=== PATIENT | male | born 1960 | race Caucasian/White ===

== ENCOUNTER 2019-08-07 14:34 | Outpatient (CLI) | payer BC ==
[2019-08-07 16:16] VITALS: BP 124/72
--- NOTE | 2019-08-07 16:16 | SLEEP CARE CONSULTATION ---
Information from patient questionnaire entered by Jennifer Gordon. I have reviewed and concur with the information entered by Jennifer Gordon. This document represents the service I personally performed and the decisions made by me, Ryann Worrell MD, [facility]. History of Present Illness Reason for Visit: New patient, Previously diagnosed sleep apnea, sleep apnea on CPAP therapy Chief Complaint: reports: Other (poor CPAP mask fit) Duration of Symptoms: 1 year Usual bedtime: [id number] Time it takes to fall asleep: 5-10 minutes Snores at night: Yes (without CPAP) Observed to quit breathing while asleep: Yes Sleeps alone due to snoring: No Number of times waking at night: 2-4 Reasons for waking at night: reports: Other (unknown- wake, look at clock, go back to sleep) Toss, Turn, or Twitch while sleeping: No Recalls having dreams: Yes Usually gets out of bed at: 0700 Feels refreshed in the morning: Yes Morning headache: No Sleepy or fatigued during the day: Yes Ever fallen asleep while driving: Yes (microsleep greater than 15 years ago) Takes day naps: No Dreams during day naps: Yes (I think) Prior sleep studies: Yes Year and Where: 2008 [facility] for Sleep Additional HPI information: I had the pleasure of seeing Mr. Robles today regarding obstructive sleep apnea-hypopnea. As you know, he is a 58 year old gentleman who was diagnosed with the sleep-disordered breathing in [place], [place], in 2008. The AHI was 27. He was prescribed a CPAP device set at 6 15 cmH2O. He is currently on his second CPAP. He uses it every night and all night. The compliance data show usage in 180 out of the past 180 nights, averaging 7.4 hours a night. The residual AHI is 3.9 and average air leak is 4 hours a night. He wears a full face mask. He has no durable medical supplier. He finds the treatment beneficial. CPAP Compliance Data - Data Reviewed with Patient Average duration of nightly device use: 7h 26m Compliance rate %: 97.8 Current pressure setting (cmH2O): 6-15 Humidity settin Subjective Initial Craig Sleepiness Scale score: 1 Past Medical History Past Medical History: reports: Arrythmia (successfully eliminated by cardiac ablations) Social History The patient's occupation is retired. Patient is and lives in [place]. Have you smoked in the past 12 months: No Alcohol use: No Caffeine use: Yes Caffeine amount and frequency: 12oz Diet Coke after lunch Family History Family history of sleep disordered breathing: Yes Family Hx Sleep Apnea: Father: Sleep apnea - Treated Allergies and Home Medications Drug allergies reviewed: Yes Home medication list reviewed: Yes Review of Systems Weight gain over past 5 years: 26 Cardiovascular: reports: palpitations (used to) Respiratory: denies: shortness of breath, wheeze, sputum production, chronic cough, other Gastrointestinal: denies: heartburn, difficulty swallowing, nausea, vomitting, diarrhea, abdominal pain, other Urinary: denies: incontinence, frequency, urgency, impotence, other Neurological: denies: headaches, seizure, head trauma, disorientation, speech dysfunction, gait or balance problems, fainting or unconsciousness, other Psychiatric: denies: Attention Deficit Hyperactivity, anxiety, depression, mood disorder, claustrophobia, other Ear/Nose/Throat: reports: wisdom teeth removed. denies: nasal congestion, sinus problems, nose bleeds, dry mouth/throat, hoarseness, injury to nose, tonsillectomy, other Endocrine: denies: thyroid disease, history of goiter, sluggishness, too hot or cold, excessive thirst, increased appetite, increased urination, unexplained weakness, other Musculoskeletal: denies: joint pain, neck pain, back pain, joint swelling, muscle pain or cramping, mobility problems, other Immunologic: reports: sneezing (runny nose) Physical Exam Vital signs obtained and entered by: Dr. Worrell Blood Pressure: 124/72 Cuff size: regular Heart Rate: 72 O2 Saturation: 99 Height: 6 ft 2 in Weight: 188 lb Body Mass Index: 24.1 BMI Classification: Healthy weight Neck circumference: 15 Mood/affect: normal HEENT: No craniofacial malformation Nostrils: patent to airflow Turbinates: normal Septum: midline Mouth and throat: narrow oropharynx Soft palate: long Hard palate: normal Uvula: normal Uvula visualization: 50% Mallampati Class II Tongue: normal in size Tonsils: small Chin and jaw: normal size and position Neck: normal w/o lymphadenopathy or thyromegaly Heart: regular rate and rhythm Lungs: clear bilaterally Abdomen: soft, non-tender Extremities: no edema or clubbing Neurologic: intact, no focal deficits Impression and Plan IMPRESSION: 1. Obstructive Sleep Apnea-Hypopnea Syndrome, moderate, as previously diagnosed 10 years ago. The patient has good CPAP compliance. The current pressure setting appears effective and comfortable. The mask, however, does not fit well. The full face mask appears to be a disposable mask given to him by the hospital where he was admitted to for his heart condition. Based on his old sleep study, I will order him a new machine along with supplies. I will set the new machine at the same setting of 6 15 cmH2O. Plan: 1. Prescription made for an autoCPAP, heated humidifier, and related supplies. 2. Try newer full face masks. 3. Return for follow up after one month on the new machine. I spent 100% of this 20 minute visit face to face with the patient with greater than 50% of this was spent time counseling the patient and coordination of care.
== END 2019-08-07 14:35 | disposition home or self-care (01) ==
LOC: SC 14:34
PROVIDERS: ATTEND Internal Medicine Pulmonary Disease
DX: G47.33 Obstructive sleep apnea (adult) (pediatric) (principal)
CPT/HCPCS: 99203; 99212

== ENCOUNTER 2019-11-21 13:39 | Outpatient (CLI) | payer BC ==
[2019-11-21 15:04] VITALS: BP 98/70
--- NOTE | 2019-11-21 15:04 | SLEEP CARE CONSULTATION ---
Information from patient questionnaire entered by Taryn Crisostomo. I have reviewed and concur with the information entered by Taryn Crisostomo. This document represents the service I personally performed and the decisions made by me, Doris Garcia, RN, MSN, [employer]. History of Present Illness Previous diagnosis: Moderate, Obstructive Sleep Apnea-Hypopnea Syndrome AHI: 27 Equipment type: CPAP Equipment obtained from: [employer] Mask style: Full face (Crystal View - large cushion) Mask brand: Respironics Backup mask available: Yes (old mask) Last cushion change: a few days ago CPAP Compliance Data - Data Reviewed with Patient Average duration of nightly device use: 8.2 Compliance rate %: 96.7 Current pressure setting (cmH2O): 6-15 Humidity settin Heated hose settin Average residual AHI: 4.9 Average large leak: 1 hr 20 min 50 sec Subjective Patient concerns: reports: aerophagia, mask leak noise (especially when sleeps on side ), other (irritation end of nose from mask - ). denies: mask discomfort, air blowing in eyes, condensation in mask/hose, nasal congestion, dry mouth, nose, throat, epistaxis Observed to snore while using device: No Current pressure setting perceived as: comfortable On therapy, patient: reports: sleeping better, more rested overall. denies: drowsiness while driving Initial Lancaster Sleepiness Scale score: 1 Current Lancaster Sleepiness Scale score: 2 Allergies and Home Medications Known drug allergies: No Home medication list reviewed: Yes (no change from initial) Review of Systems Review of systems same as previous: Yes Physical Exam Blood Pressure: 98/70 Cuff size: long Heart Rate: 69 O2 Saturation: 98 Height: 6 ft 2 in Weight: 197 lb Body Mass Index: 25.2 BMI Classification: Overweight Impression and Plan 1. Obstructive Sleep Apnea-Hypopnea Syndrome, moderate, with good treatment compliance and good apnea control. On CPAP therapy, the patient has better sleep quality and is more rested overall. For mask irritation and leaks, could be from too large of mask. I fitted him and he is a medium by my measurements so I advised him to try his medium cushion. I showed him some other styles of masks that he could try if end of nose continues to be irritated. Mask leaks can be reduced by washing mask daily and changing mask cushions more frequently to improve mask seal and comfort. He can incorporate by washing off when brushes teeth or using a CPAP wipe. Additionally, mask leaks predominately from when patient sleeps on their side can be reduced by using a CPAP pillow. A CPAP pillow sample was shown. This and other styes can be bought online for about $60 . Cleaning reference sheet given. I showed him how his mask leaks were increasing his AHI, though averaging 4.9 within the goal of less than 5 AHI. Patient's apnea severity and rationale for treatment to reduce apnea, improve sleep quality and reduce cardiovascular and cerebrovascular events was reviewed. I also reviewed the benefit of consistent device use of CPAP for arrhythmia. ( ablation in 2019). Since his apnea is more severe supine, if unable to use CPAP he is advised to avoid supine sleep with pillow positioning. * Continue CPAP pressure at 6-15 cmH2O * Try medium cushion * Implement cleaning methods discusse. * Notify me if snoring with mask or feeling that the pressure is too much or too little * Attempt to lose weight * Call this office if any problems using CPAP * Return for follow up in 1 year , or sooner if concerns arise Time Spent with Patient (minutes): 30 I spent 100% of this visit face to face with the patient with greater than 50% of this was spent time counseling the patient and coordination of care.
== END 2019-11-21 13:40 | disposition home or self-care (01) ==
LOC: SC 13:39
PROVIDERS: ATTEND Nurse Practitioner Family
DX: G47.33 Obstructive sleep apnea (adult) (pediatric) (principal)
CPT/HCPCS: 99212; 99214

== ENCOUNTER 2020-12-04 15:05 | Outpatient (CLI) | payer BC ==
--- NOTE | 2020-12-04 14:53 | SLEEP CARE CONSULTATION ---
Information from patient questionnaire entered by Haresh Goodman. I have reviewed and concur with the information entered by Haresh Goodman. This document represents the service I personally performed and the decisions made by , Shavon Salcido ARNP. History of Present Illness Service Date and Time: 12/04/2020 1420 Previous diagnosis: Moderate, Obstructive Sleep Apnea-Hypopnea Syndrome AHI: 27 Reason for follow up: annual (Last seen 11/2019) Equipment type: CPAP Equipment obtained from: [employer] (getting supplies as needed) Mask style: Full face (Crystal View - large cushion) Backup mask available: Yes (old mask) Last cushion change: 7 week ago Prior sleep studies: Yes Year and Where: 2008 [facility] for Sleep HPI additional information: ANJUM ANGELA was diagnosed to have moderate, AHI 27.0, obstructive sleep apnea-hypopnea syndrome and returns via Telehealth visit today for CPAP therapy annual follow-up. CPAP Compliance Data - Data Reviewed with Patient Average duration of nightly device use: 8 hours 6 minutes Compliance rate %: 96.7 Current pressure setting (cmH2O): 6-15 Humidity setting: off Heated hose setting: off Average residual AHI: 5.1 Central apnea: 0.0 Obstructive apnea: 1.0 Hypopnea: 4.0 Subjective Missed days of use due to: reports: other (power outage) Patient concerns: denies: aerophagia, mask discomfort, air blowing in eyes, mask leak noise, condensation in mask/hose, nasal congestion, dry mouth, nose, throat, epistaxis, other Observed to snore while using device: No Current pressure setting perceived as: comfortable On therapy, patient: reports: sleeping better, awakening more refreshed, being more awake and alert during the day, more rested overall. denies: drowsiness while driving Initial Bentley Sleepiness Scale score: 1 (in 2019) Current Bentley Sleepiness Scale score: 1 Allergies and Home Medications Drug allergies reviewed: Yes (NKDA) Home medication list reviewed: Yes (no changes) Review of Systems Review of systems same as previous: Yes (no changes) Physical Exam Vital signs obtained and entered by: Telehealth visit to reduce exposure during Covid pandemic Height: 6 ft 2 in Impression and Plan 1. Obstructive Sleep Apnea-Hypopnea Syndrome, moderate, with good treatment compliance and fair apnea control with minimal elevated AHI. On CPAP therapy, the patient has better sleep quality and is more rested overall. We will keep pressure setting same since the elevation in minimal and patient is getting good response from his CPAP therapy. He stayed with the Crystal View mask and once he changed to the medium mask the fit has been good. He has no other issue with mask use. Patient's apnea severity and rationale for treatment to reduce apnea, improve sleep quality and reduce cardiovascular and cerebrovascular events was reviewed. I also reviewed the benefit of consistent device use of CPAP for arrhythmia. * Continue auto CPAP pressure at 6-15 cmH2O * Notify me if snoring with mask or feeling that the pressure is too much or too little * Call this office if any problems using CPAP * Return for follow up in 1 year, or sooner if concerns arise Visit Type: Telehealth Video Video Type: VSee Patient Location: Home Location of Provider: Office Patient agrees and consents to this telehealth visit type: Yes Patient agrees to have their insurance billed: Yes Time Spent with Patient (minutes): 15 Provider Statement: I spent 100% of the Telehealth Video Call with the patient with greater than 50% spent counseling the patient and coordination of care.
== END 2020-12-04 15:06 | disposition home or self-care (01) ==
LOC: SC 15:05
PROVIDERS: ATTEND Nurse Practitioner Family
DX: G47.33 Obstructive sleep apnea (adult) (pediatric) (principal)

== ENCOUNTER 2022-01-28 07:56 | Day surgery (SDC) | payer BC ==
--- NOTE | 2022-01-28 08:44 | ANESTHESIA ---
Pre-Anesthesia VS, & Labs - Diagnosis hx of colon polyps - Procedure colonoscopy Vital Signs: Temp Pulse Resp BP Pulse Ox 36 C L 75 16 139/85 H 100 01/28/22 08:10 01/28/22 08:10 01/28/22 08:10 01/28/22 08:10 01/28/22 08:10 Height: 6 ft 3 in Weight (kg): 82.9 kg Body Mass Index: 22.8 BMI Classification: Healthy weight - NPO >8 hours - Lab Results Lab results reviewed: No Home Medications and Allergies Home Medications: Ambulatory Orders Cholecalciferol (Vitamin D3) [Vitamin D3] 1,250 mcg PO DAILY 01/27/22 Cholecalciferol (Vitamin D3) [Vitamin D3] 1,250 mcg PO DAILY 01/27/22 Allergies/Adverse Reactions: Allergies Allergy/AdvReac Type Severity Reaction Status Date / Time No Known Drug Allergies Allergy Verified 01/27/22 11:57 Anes History & Medical History - Anesthetic History Anesthesia Complications: reports: No previous complications Family history of Anesthesia Complications: Denies Family history of Malignant Hyperthermia: Denies - Medical History Cardiovascular: reports: Other (hx of a fib s/p ablation, no issues since) Pulmonary: reports: None, Sleep apnea, CPAP use Gastrointestinal: reports: None Urinary: reports: None Musculoskeletal: reports: None Endocrine/Autoimmune: reports: None Skin: reports: None - Surgical History General: reports: Colonoscopy Exam General: Alert, Oriented x3, Cooperative, No acute distress Dental: WNL Mouth Openin Fingerbreadth Neck Mobility: Normal Mallampati classification: II Plan Anesthesia Type: General, Total IV Consent for Procedure(s) Verified and Reviewed: Yes Code Status: Attempt Resuscitation ASA classification: 2-Mild systemic disease Is this case an emergency?: No
[2022-01-28] MEDS ORDERED: LACTATED RINGERS 1,000 ML IV ONE (08:45)
[2022-01-28] MEDS ORDERED: PROPOFOL 500 MG/50 ML 500 MG/50 ML VIAL ONE (09:23)
[2022-01-28] MEDS ORDERED: LACTATED RINGERS 400 ML IV ONE (09:52)
[2022-01-28 10:27] VITALS: BP 120/83
--- NOTE | 2022-01-28 10:55 | ANESTHESIA POST OP EVALUATION ---
Anesthesia Post Eval - Post Anesthesia Eval Vitals: Last Vital Signs Temp 36.3 C L 01/28/22 10:26 Pulse 59 L 01/28/22 10:26 Resp 18 01/28/22 10:26 BP 120/83 H 01/28/22 10:26 Pulse Ox 100 01/28/22 10:26 CV Function Including HR & BP: Stable Pain Control: Satisfactory Nausea & Vomiting: Negative Mental Status: Baseline Respiratory Status: Airway Patent Hydration Status: Satisfactory Anesthesia Complications: None
== END 2022-01-28 07:57 | disposition home or self-care (01) ==
LOC: SDS 07:56
PROVIDERS: ATTEND Surgery
PROC: 0DBK8ZZ Excision of Ascending Colon, Via Natural or Artificial Opening Endoscopic (ICD-10-PCS; principal; 2022-01-28 09:30)
DX: Z12.11 Encounter for screening for malignant neoplasm of colon (principal); K64.8 Other hemorrhoids; D12.2 Benign neoplasm of ascending colon; G47.33 Obstructive sleep apnea (adult) (pediatric)
CPT/HCPCS: 45380; J7120

== ENCOUNTER 2022-05-06 11:04 | Outpatient (CLI) | payer BC ==
[2022-05-06 11:33] VITALS: BP 118/75
--- NOTE | 2022-05-06 11:33 | SLEEP CARE CONSULTATION ---
Information from patient questionnaire entered by Dafne Tang MA. I have reviewed and concur with the information entered by Dafne Tang MA. This document represents the service I personally performed and the decisions made by , Shavon Salcido ARNP. History of Present Illness Service Date and Time: 05/06/2022 1104 Previous diagnosis: Moderate, Obstructive Sleep Apnea-Hypopnea Syndrome AHI: 27 Reason for follow up: annual (LAST SEEN 11/2020, GUILLERMO, PRESLEY 09/19/2019, ) Equipment type: CPAP Equipment obtained from: [employer] (getting supplies; but not happy with them due to billing issues) Mask style: Full face (Crystal View - large cushion) Backup mask available: Yes (old mask) Last cushion change: few months ago Prior sleep studies: Yes Year and Where: 2008 [facility] for Sleep HPI additional information: ANJUM ANGELA was diagnosed to have moderate, AHI 27, obstructive sleep apnea- hypopnea syndrome and returned today for CPAP therapy annual follow-up. Sleep Study - Results Prior sleep studies: Yes Year and Where: 2008 [facility] CPAP Compliance Data - Data Reviewed with Patient Average duration of nightly device use: 7 HOURS 16 MINUTES Compliance rate %: 100 (02/04/22-05/04/22) Current pressure setting (cmH2O): 6-15 (90% 8.6) Humidity setting: OFF Heated hose setting: OFF Average residual AHI: 6.0 Average large leak: 48 MINUTES 44 SECONDS Subjective Patient concerns: denies: aerophagia, mask discomfort, air blowing in eyes, mask leak noise, condensation in mask/hose, nasal congestion, dry mouth, nose, throat, epistaxis, other Observed to snore while using device: No Current pressure setting perceived as: comfortable On therapy, patient: reports: sleeping better, awakening more refreshed, being more awake and alert during the day, more rested overall. denies: drowsiness while driving Initial Randolph Sleepiness Scale score: 1 (in 2018) Current Randolph Sleepiness Scale score: 1 () Allergies and Home Medications Drug allergies reviewed: Yes (NKDA) Home medication list reviewed: Yes (no changes) Allergy and home medication list: Allergies No Known Drug Allergies Allergy (Verified 01/27/22 11:57) Review of Systems Review of systems same as previous: Yes (no changes) Physical Exam Vital signs obtained and entered by: Sonal TANG CMA AAOUMOU Blood Pressure: 118/75 (RESP 18, PULSE 66, RIGHT) Cuff size: wrist Heart Rate: 66 O2 Saturation: 99 (N95) Height: 6 ft 3 in Weight: 180 lb (CLOTHES) Weight change since last visit: MAINTAIN WEIGHT Body Mass Index: 22.5 BMI Classification: Healthy weight Impression and Plan 1. Obstructive Sleep Apnea-Hypopnea Syndrome, moderate, with excellent treatment compliance and fair apnea control with mild elevation of residual AHI. On CPAP therapy, the patient has better sleep quality and is more rested overall. The patients pressure will be changed to autoCPAP 8-10 cmH20 for elevation of residual AHI. Patient advised to contact me if pressure change is uncomfortable so that it can be adjusted. Goals for apnea control discussed. Patient is not happy with service from current DME and would like to change to the one his is using. I will have my hospital unit coordinator inform of DME options. A DWO prescription will then be made. Patient advised to contact this office if further supply problems. Patient's apnea severity and rationale for treatment to reduce apnea, improve sleep quality and reduce cardiovascular and cerebrovascular events was reviewed. I also reviewed the benefit of consistent device use of CPAP for arrhythmia. * Transfer DME * Change auto CPAP pressure to 8-10 cmH2O * Notify me if snoring with mask or feeling that the pressure is too much or too little * Maintain a healthy weight * Call this office if any problems using CPAP * Return for follow up in 1 year, or sooner if concerns arise Counseling Topics: Spare mask, Weight control Visit Type: In Office Time Spent with Patient (minutes): 20 Provider Statement: I spent 100% of the Face to Face Visit with the patient with greater than 50% spent counseling the patient and coordination of care.
== END 2022-05-06 11:05 | disposition home or self-care (01) ==
LOC: SC 11:04
PROVIDERS: ATTEND Nurse Practitioner Family
DX: G47.33 Obstructive sleep apnea (adult) (pediatric) (principal)
CPT/HCPCS: 99212; 99213